=== PATIENT | female | born 1995 | race Asian ===

== ENCOUNTER → 2019-12-17 14:46 | Outpatient (CLI) | payer OTHER, SELFPAY ==
--- NOTE | 2019-12-17 14:50 | DI.US.S_ITS ---
PROCEDURE: US OB >= 14 WEEKS FETUS INDICATIONS: 20 week anatomy scan OUTSIDE/PRIOR DATING DATA: Last menstrual period (LMP): Not available. LMP-based estimated date of delivery (DAIANA): Not available. First dating scan (date and location): 10/28/[address] Romero's office. Estimated date of delivery (DAIANA) from first dating scan: 04/23/2020. TECHNIQUE: Real-time scanning was performed of the fetus, with image documentation and biometric measurements. Endovaginal scanning: Mild performed COMPARISON: [facility], , OB <= 14 WEEKS FETUS, 10/28/2019, 15:19. FINDINGS: General: A single living intrauterine gestation is present. Presentation: Breech. Placenta: Placental position is fundal , without previa. Amniotic fluid index: 15.9 cm, normal range is 5-24 cm; largest pocket 4.4 cm. heart rate: 173 beats per minute. Maternal cervical canal: 3.9 cm long. Normal lower limit is 2.5 cm. biometrics: Biparietal diameter: 21 weeks 4 days Head circumference: 21 weeks 1 day Abdominal circumference: 21 weeks 5 days Femur length: 21 weeks 1 day Estimated gestational age from initial scan: 21 weeks 5 days. Composite gestational age from present scan: 21 weeks 3 days Estimated weight and percentile: 421 g; 28% Measurement variability for biometric dating: +/- 7 days from 14 weeks to 15 weeks 6 days gestation, +/- 10 days from 16 weeks to 21 weeks 6 days gestation, +/- 2 weeks from 22 weeks to 27 weeks 6 days gestation, +/- 3 weeks for 28 weeks gestation or later. weight reference: 4500 g or EFW >90/95% is considered macrosomia or large for gestational age. EFW <10% is small for gestational age. EFW 5% or less is considered intra-uterine growth restriction. Anatomic survey: Neuro: Ventricles are non-dilated at less than 10 mm. Cisterna magna is normal at 3-11 mm. Cerebellum is normal in size and morphology. Nuchal skin fold: Normal at less than 6 mm between 14-21 weeks gestational age. Face: Nose and lips, facial profile are normal. Spine: No evidence for spina bifida. Heart: 4-chambered heart is present, with normal ventricular outflow tracts. Diaphragm: Diaphragm is intact. Stomach: Left-sided stomach is present. Kidneys: No hydronephrosis. Normal is less than 5 mm in 2nd trimester, less than 7 mm in 3rd trimester. Cord: 3-vessel cord has orthotopic insertion. Bladder: Normal in size. Extremities: All 4 extremities identified. IMPRESSION: 1. A single living intrauterine gestation with appropriate interval growth. 2. Normal anatomic survey. 3. heart rate is elevated at 173 BPM. Recommend clinical correlation and follow-up. Dictated by: Zohra Rivera M.D. on 12/17/2019 at 17:22 Approved by: Zohra Rivera M.D. on 12/17/2019 at 17:26
== END ==
PROVIDERS: PCP Specialist; Referring Provider Specialist; Visit Provider Specialist
DX: Z34.02 Encounter for supervision of normal first pregnancy, second trimester (principal); Z3A.21 21 weeks gestation of pregnancy
CPT/HCPCS: 76811

== ENCOUNTER → 2020-02-10 09:51 | Outpatient (CLI) | payer OTHER, SELFPAY ==
[2020-02-10 13:34] LABS: Hematocrit 30.8 % (36-46); Hemoglobin 10.2 g/dL (12.0-16.0)
[2020-02-10 13:49] LABS: GTT (PREG) 1 Hour PP 50gm Dose 66 mg/dL (76-139)
== END ==
PROVIDERS: PCP Specialist; Referring Provider Specialist; Visit Provider Specialist
DX: Z34.02 Encounter for supervision of normal first pregnancy, second trimester (principal)
CPT/HCPCS: 36415; 82950; 85014; 85018

== ENCOUNTER → 2020-03-30 17:28 | Outpatient (CLI) | payer OTHER, MEDICAID, SELFPAY ==
[2020-03-31 12:56] LABS: Strep Grp B PCR NEG for Grp B Strep
== END ==
PROVIDERS: PCP Specialist; Visit Provider Specialist
DX: Z34.03 Encounter for supervision of normal first pregnancy, third trimester (principal); Z3A.36 36 weeks gestation of pregnancy
CPT/HCPCS: 87653

== ENCOUNTER 2020-04-07 10:55 | Outpatient (CLI) | payer OTHER, MEDICAID, SELFPAY ==
--- NOTE | 2020-04-07 11:54 | PM.OBTRLD ---
Visit Information Visit Information Date of evaluation: 04/07/20 Primary OB Provider: Susi Romero Reason for Evaluation: Yes other Comments/Additional reasons for admission: Patient came in for external version for breech presentation. Vital Signs Vital Signs: Blood pressure 109/65, pulse 69 PFSH Medical History (Updated 04/07/20 @ 11:55 by Susi Romero MD) Anemia (~2018) Neck pain (~2016) Open ankle fracture Family History (Updated 10/27/19 @ 11:42 by Estela Lal RN) Mother No problems noted. Father No problems noted. Grandmother No problems noted. Grandfather No problems noted. Grandfather No problems noted. 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.) seatbelt use: always do you feel safe at home: Yes Smoking Status: Never smoker second hand exposure: No alcohol intake: former (very occasional socially, shares with , doesn't drink a whole drink.) substance use type: does not use Type(s) of exercise: walking and normal ROM and activity frequency: 5-6 times per week Evaluation Evaluation Baseline heart rate: 150 Variability: Moderate (11-25) monitor accelerations: Present monitor decelerations: Absent Contraction Frequency (minutes): 10 Uterine Contraction Intensity: Mild Category of Tracing: Reactive Status: Category l Diagnosis, Plan/Disposition Final Diagnosis (1) 38 weeks gestation of : Status: Acute Plan/Disposition Plan: Patient by ultrasound was found to be vertex today so no version necessary. Patient has appointment in 1 week for follow-up. Precautions reviewed. OB Disposition: home
== END 2020-04-07 12:00 | disposition home or self-care (01) ==
LOC: LABOR 11:27 → OB 04-08 09:22
PROVIDERS: PCP Specialist; Referring Provider Specialist; Visit Provider Specialist
DX: Z34.93 Encounter for supervision of normal pregnancy, unspecified, third trimester (principal); Z3A.38 38 weeks gestation of pregnancy
CPT/HCPCS: 59025; 59050; 76815; G0378; G0379

== ENCOUNTER 2020-04-21 16:15 | Outpatient (CLI) | payer OTHER, MEDICAID, SELFPAY ==
--- NOTE | 2020-04-21 17:04 | P.TNLD_ITS ---
Visit Information Visit Information Date of evaluation: 04/21/20 Primary OB Provider: Susi Romero Reason for Evaluation: Yes non-stress test non-stress test reason: other ( tachycardia in office) [facility] Medical History (Updated 04/21/20 @ 17:05 by Susi Romero MD) Anemia (~2017) Neck pain (~2015) Open ankle fracture Family History (Updated 10/27/19 @ 11:42 by Estela Lal RN) Mother No problems noted. Father No problems noted. Grandmother No problems noted. Grandfather No problems noted. Grandfather No problems noted. 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.) seatbelt use: always do you feel safe at home: Yes Smoking Status: Never smoker second hand exposure: No alcohol intake: former (very occasional socially, shares with , doesn't drink a whole drink.) substance use type: does not use Type(s) of exercise: walking and normal ROM and activity frequency: 5-6 times per week Evaluation Evaluation Baseline heart rate: 145 Variability: Moderate (11-25) monitor accelerations: Present monitor decelerations: Absent Contraction Frequency (minutes): 0 Category of Tracing: Reactive Status: Category l Diagnosis, Plan/Disposition Final Diagnosis (1) tachycardia: Status: Acute Plan/Disposition Plan: Reactive nonstress test with normal baseline reassuring OB Disposition: home
== END 2020-04-21 17:00 | disposition home or self-care (01) ==
LOC: LABOR 16:17 → OB 04-25 09:15
PROVIDERS: PCP Specialist; Referring Provider Specialist; Visit Provider Specialist
DX: O36.8330 Maternal care for abnormalities of the fetal heart rate or rhythm, third trimester, not applicable or unspecified (principal); Z3A.39 39 weeks gestation of pregnancy
CPT/HCPCS: 59025; G0378; G0379

== ENCOUNTER 2020-04-29 13:18 | Outpatient (CLI) | payer OTHER, MEDICAID, SELFPAY ==
--- NOTE | 2020-04-29 13:50 | P.TNLD_ITS ---
Visit Information Visit Information Date of evaluation: 04/29/20 Primary OB Provider: Susi Romero Reason for Evaluation: Yes non-stress test non-stress test reason: other (Postdates) [facility] Medical History (Updated 04/29/20 @ 13:51 by Susi Romero MD) Anemia (~2018) Neck pain (~2016) Open ankle fracture Family History (Updated 10/27/19 @ 11:42 by Estela Lal RN) Mother No problems noted. Father No problems noted. Grandmother No problems noted. Grandfather No problems noted. Grandfather No problems noted. 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.) seatbelt use: always do you feel safe at home: Yes Smoking Status: Never smoker second hand exposure: No alcohol intake: former (very occasional socially, shares with , doesn't drink a whole drink.) substance use type: does not use Type(s) of exercise: walking and normal ROM and activity frequency: 5-6 times per week Evaluation Evaluation Baseline heart rate: 150 Variability: Moderate (11-25) monitor accelerations: Present monitor decelerations: Absent Contraction Frequency (minutes): 5 Uterine Contraction Intensity: Mild Category of Tracing: Reactive Status: Category l Diagnosis, Plan/Disposition Final Diagnosis (1) Post term over 40 weeks: Status: Acute Plan/Disposition Plan: Reactive nonstress test. Patient is scheduled for induction in 5 days OB Disposition: home
== END 2020-04-29 13:57 | disposition home or self-care (01) ==
LOC: LABOR 14:31 → OB 05-02 07:33
PROVIDERS: PCP Specialist; Referring Provider Specialist; Visit Provider Specialist
DX: O48.0 Post-term pregnancy (principal); Z3A.40 40 weeks gestation of pregnancy
CPT/HCPCS: 59025; G0378; G0379

== ENCOUNTER 2020-04-29 22:33 | Outpatient (CLI) | payer OTHER, MEDICAID, SELFPAY | END 2020-04-29 23:05 | disposition home or self-care (01) | LOC: OB 05-02 07:33 | PROVIDERS: PCP Specialist; Referring Provider Specialist; Visit Provider Specialist | DX: O48.0 Post-term pregnancy (principal); Z3A.40 40 weeks gestation of pregnancy | CPT/HCPCS: 59025; G0378; G0379 ==

== ENCOUNTER 2020-04-30 12:09 | Inpatient (IN) | payer OTHER, MEDICAID, SELFPAY ==
[2020-04-30] MEDS: LACTATED RINGERS 1,000 ML 100 ML IV ×4 (12:30→21:46)
[2020-04-30 12:47] LABS: Add Manual Diff / Slide Review NO; Basophils Absolute Auto 0 /uL (0-100); Basophils Percent Auto 0.2 % (0-2); Eosinophils Absolute Auto 0 /uL (0-450); Hematocrit 37.3 % (36-46); Hemoglobin 12.3 g/dL (12.0-16.0); Lymphocytes Absolute Auto 1200 /uL (1100-4500); Lymphocytes Percent Auto 6.6 % (25-40); Mean Corpuscular Hemoglobin 25.2 PG (26-34); Mean Corpuscular Volume 76.4 fL (80-100); Monocytes Absolute Auto 400 /uL (0-900); Monocytes Percent Auto 2.3 % (3-14); Neutrophils Absolute Auto 17300 /uL (1500-7000); Neutrophils Percent Auto 90.9 % (50-75); Platelet Count 217 X10^3/uL (150-400); Red Blood Cell Count 4.89 X10^6/uL (4.0-5.2); Red Cell Distribution Width 13.5 % (11.6-14.8)
[2020-04-30 13:00] LABS: COVID19 -Nasal RAPID Negative (Negative)
--- NOTE | 2020-04-30 13:12 | P.HPOB_ITS ---
OB HPI Date/Time Date of admission: 04/30/20 Date Patient Seen: 04/30/20 Time Patient Seen: 13:12 History of Present Condition Chief complaint: : 1 Para: 0 Estimated Date of Delivery: 04/23/20 Estimated Gestational Age (weeks): 41 Narrative: Julia Vernon is a 24 year old female admitted in active labor History of Present care: good care, initiated at week # (14), number of visits (13) and pounds weight gain (26) Dating criteria: LMP confirmed by 2nd trimester US Ultrasounds: normal mid trimester US Obstetrical complications: none Medical complications: none Preadmission Labs Blood type: B (+) positive -: Antibody screen: negative, GBS status: negative, HBsAG: negative, HIV: negative and RPR/VDLR: negative -: Chlamydia screen: not detected and Gonorrhea screen: not detected -: Rubella: immune and Varicella: immune HCAB: negative PAP: Normal (Positive high-risk HPV) 1 hr GTT: 66 Evaluation Evaluation Baseline heart rate: 140 Variability: Moderate (11-25) monitor accelerations: Present monitor decelerations: Absent Contraction Frequency (minutes): 5 Uterine Contraction Intensity: Strong/Firm Category of Tracing: Reactive Status: Category l Cervical dilation (cm): 9 Cervical effacement (%): 100 station: 0 Laboratory results: Laboratory Tests 04/30/20 04/30/20 12:35 12:35 WBC 19.0 H RBC 4.89 Hgb 12.3 Hct 37.3 MCV 76.4 L MCH 25.2 L MCHC 33.0 RDW 13.5 Plt Count 217 Neut % (Auto) 90.9 H Lymph % (Auto) 6.6 L [place] % (Auto) 2.3 L Eos % (Auto) 0.0 L Baso % (Auto) 0.2 Neut # (Auto) 39840 H Lymph # (Auto) 1200 [place] # (Auto) 400 Eos # (Auto) 0 Baso # (Auto) 0 SARS-CoV-2 (PCR) Negative PFSH Medical History (Updated 04/29/20 @ 13:51 by Susi Romero MD) Anemia (~2017) Neck pain (~2015) Open ankle fracture Family History (Updated 10/27/19 @ 11:42 by Estela Lal RN) Mother No problems noted. Father No problems noted. Grandmother No problems noted. Grandfather No problems noted. Grandfather No problems noted. 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.) seatbelt use: always do you feel safe at home: Yes Smoking Status: Never smoker second hand exposure: No alcohol intake: former (very occasional socially, shares with , doesn't drink a whole drink.) substance use type: does not use Type(s) of exercise: walking and normal ROM and activity frequency: 5-6 times per week Meds Home Medications and Allergies Home Medications Medication Instructions Recorded Confirmed Type prenat.vits,zack,hci-zuzr-osctv 1 tab PO DAILY 10/27/19 04/21/20 History Allergies Allergy/AdvReac Type Severity Reaction Status Date / Time No Known Drug Allergies Allergy Verified 01/13/20 11:01 Review of Systems Review of Systems Narrative: Patient denies headaches, scotomata, epigastric pain. Good movement. Rupture membranes ROS: Yes All systems reviewed with the patient and are negative except as otherwise documented Exam Vital Signs (past 8 hours): Blood pressure 94/53, pulse of 83, temperature 36.3? Narrative Exam Narrative: HEENT exam within normal limits. Lungs are clear auscultation percussion. Heart is regular rate and rhythm no S3-S4 murmurs. Fetus is vertex. Extremities without edema and nontender. Objective Labs Result Diagrams: 04/30/20 12:35 Labs: Laboratory Results - last 24 hr 04/30/20 04/30/20 12:35 12:35 WBC 19.0 H RBC 4.89 Hgb 12.3 Hct 37.3 MCV 76.4 L MCH 25.2 L MCHC 33.0 RDW 13.5 Plt Count 217 Neut % (Auto) 90.9 H Lymph % (Auto) 6.6 L [place] % (Auto) 2.3 L Eos % (Auto) 0.0 L Baso % (Auto) 0.2 Neut # (Auto) 46644 H Lymph # (Auto) 1200 [place] # (Auto) 400 Eos # (Auto) 0 Baso # (Auto) 0 SARS-CoV-2 (PCR) Negative Assessment and Plan Assessment and Plan Assessment and Plan narrative: 41 week gestation active labor. Patient is receiving epidural catheter for pain control. Anticipate vaginal delivery.
[2020-04-30] MEDS: FENT 2MCG/ML BUPIV 0.125% EPI 200 MCG/100 ML PLAST..BAG 10 MCG EPIDURAL (13:16)
[2020-04-30] MEDS: OXYTOCIN PREMIX 30 UNIT/500 ML PLAST..BAG IV (14:52)
--- NOTE | 2020-04-30 18:54 | PM.PREOP ---
Pre-operative Note COVID-19 COVID-19 status: Negative Result date/Date tested (Pos, Neg/Pending): 04/30/20 Interval Note History & Physical reviewed/Exam performed by Physician: Yes Changes to H&P: Yes H&P completed within 30 days and has changed as indicated here:: Failure to deliver, second-stage arrest
--- NOTE | 2020-04-30 18:55 | PM.OBPNLAB ---
Date/Time Date Patient Seen: 04/30/20 Time Patient Seen: 18:55 Pain Control Pain control: epidural Pelvic Exam Dilation (cm): 10 Effacement (%): 100 station: 0 Amniotic membrane status: Ruptured Contractions Contractions on admission: regular Monitor mode: External Pitocin rate (mU/min): 6 Contraction frequency (min): 4 Contraction duration (min): 1 Contraction pattern: Regular Contraction intensity: Strong/Firm Status status: Category ll Heart Rate Baseline: 140 Monitor Accelerations: Present Monitor Decelerations: Variable Monitor Variability: Moderate Assessment and Plan Plan: Comments: Failed attempt at vacuum assisted vaginal delivery
[2020-04-30] MEDS: CEFAZOLIN 2 GM/100 ML FROZ.PIGGY IV (19:25)
--- NOTE | 2020-04-30 19:45 | SUR.OPER ---
Supine on Padded OR bed, head on pillow, safety belt at thigh, arms secured on padded arm boards at <90 degrees abduction. Bump under right buttock. Legs uncrossed with pillow under knees, gel pad to heels, tape over blanket to lower legs.
--- NOTE | 2020-04-30 19:56 | SUR.OPER ---
Viable baby girl born at 1937, placenta delivered. Cord blood tubes X2 and placenta given to L&D RN.
[2020-04-30 20:18] VITALS: BP 124/68; PULSE 89; RESP 16; TEMP 37.4; O2SAT 99
[2020-04-30 20:22] VITALS: BP 122/64; PULSE 83; RESP 19; O2SAT 97
--- NOTE | 2020-04-30 20:23 | P.OP_ITS ---
Operative Date/Time/Diagnoses Date of procedure: 04/30/20 Time of procedure: 20:23 Pre-op diagnosis: Second-stage arrest with failed vacuum assisted vaginal delivery Post-op diagnosis: same Procedure & Clinicians Procedure: Primary low-transverse section Same procedure as scheduled: Yes Indications: Second-stage arrest with failed attempt at vacuum assisted vaginal delivery Surgeon: Susi Romero Entry Level Business Analyst: Gracy Pelletier Click Yes if Unassisted: No Anesthesia Type: Epidural Operative Notes Findings: Normal tubes, ovaries, uterus. Viable female infant with Apgars of 8 and 9, 3500 g Closure Type: primary Specimen(s): none sent Applied: catheter (Ramos) Estimated Blood Loss (mL): 400 Blood products transfused: none Procedure in detail: The patient was brought to the operating room where she underwent bolus of her epidural for anesthesia. She was placed in a supine position with a left lateral tilt. A Ramos catheter was placed. Pulsatile stockings were placed and functional throughout the case. 2 g of Ancef were given IV prior to the incision. Warming was in place. The patient was prepped and draped in usual sterile fashion. A low transverse incision was made with a scalpel and the incision was carried down to the fascial layer which was incised transversely with scissors. The office manager executive assistant did her side of the incision. The midline attachments are superiorly and inferiorly. Some bleeding was controlled Bovie. The rectus muscles were in the midline and the peritoneal incision was made with no damage to internal structures. The peritoneum was incised and superiorly and inferiorly. The incision was stretched with the surgeon and office manager executive assistant placing traction. Bladder blade was placed and a bladder flap was developed and the bladder held away from the lower uterine segment. An incision was made in the uterus with the scalpel and the incision was extended with stretching. The head was elevated out of the abdomen and with fundal pressure by the office manager executive assistant the baby was delivered. The was bulb suctioned for clear fluid and handed off to the warmer. Cord blood was collected. The placenta delivered spontaneously with traction. The uterus was cleaned with clean laps. The uterine incision was closed in 2 layers of 0 chromic suture the first a running locking layer the second an imbricating layer. The office manager executive assistant was helping to expose the incision. The bladder peritoneum was repaired with 2-0 Vicryl suture. The gutters were cleaned of any remaining fluids and ovaries and tubes were observed to be normal. Adequate hemostasis was noted. The perineum was closed with 2-0 Vicryl suture. The fascia layer was closed with 0 Vicryl suture with 2 stitches. The office manager executive assistant repairing half the incision with helping to retract and expose the incision for the other half. The incision was irrigated and adequate hemostasis noted. The incision was closed with interrupted 3-0 Vicryl sutures and then a subcuticular stitch of 4-0 Vicryl suture. Steri-Strips were placed. The uterus was massaged to remove any clots. The patient went to recovery room in good condition. Counts of instruments and sponges were correct. Dr. Pelletier was present throughout the case to assist with retraction, fundal pressure to deliver the , and suturing half the fascia. Complications: none Post-operative Condition: stable Disposition: other ( Center) Plan for aftercare: Routine post section
[2020-04-30 20:27] VITALS: BP 97/64; PULSE 78; RESP 20; O2SAT 98
[2020-04-30 20:32] VITALS: BP 105/63; PULSE 75; RESP 22; O2SAT 98
[2020-04-30 20:41] VITALS: BP 118/61; PULSE 71; RESP 18; TEMP 37.6; O2SAT 97
--- NOTE | 2020-04-30 21:06 | SUR.PHASEI ---
Stable post op, to BC.
[2020-04-30 22:04] VITALS: BP 114/66
[2020-04-30] MEDS: ACETAMINOPHEN 325 MG TABLET 650 MG PO (22:26)
[2020-04-30] MEDS: OXYCODONE IR 5 MG TABLET PO (22:27)
[2020-05-01] MEDS: KETOROLAC 30 MG/ML VIAL IV ×3 (02:14→14:39)
[2020-05-01] MEDS: LACTATED RINGERS 1,000 ML 100 ML IV (05:19)
[2020-05-01] MEDS: ACETAMINOPHEN 325 MG TABLET 650 MG PO ×3 (05:20→22:40)
[2020-05-01 06:30] LABS: Add Manual Diff / Slide Review NO; Basophils Absolute Auto 100 /uL (0-100); Basophils Percent Auto 0.3 % (0-2); Eosinophils Absolute Auto 0 /uL (0-450); Eosinophils Percent Auto 0.1 % (2-4); Hematocrit 30.7 % (36-46); Hemoglobin 10.3 g/dL (12.0-16.0); Lymphocytes Absolute Auto 1300 /uL (1100-4500); Lymphocytes Percent Auto 6.7 % (25-40); Mean Corpuscular HGB Conc 33.5 % (30-36); Mean Corpuscular Hemoglobin 25.6 PG (26-34); Mean Corpuscular Volume 76.2 fL (80-100); Monocytes Absolute Auto 900 /uL (0-900); Monocytes Percent Auto 4.8 % (3-14); Neutrophils Absolute Auto 16400 /uL (1500-7000); Neutrophils Percent Auto 88.1 % (50-75); Platelet Count 160 X10^3/uL (150-400); Red Blood Cell Count 4.02 X10^6/uL (4.0-5.2); Red Cell Distribution Width 13.4 % (11.6-14.8); White Blood Cell Count 18.6 X10^3/uL (4.5-11.0)
[2020-05-01] MEDS: DOCUSATE 250 MG CAPSULE PO (08:45)
[2020-05-01] MEDS: LANOLIN OINT 7 GM 1 APPLIC TOP (08:45)
[2020-05-01 08:46] VITALS: TEMP 37.2
--- NOTE | 2020-05-01 09:15 | P.PNOB_ITS ---
Subjective - OB Subjective Patient comments: no complaints Enterprise baby status: doing well Enterprise feeding status: exclusively breast feeding Date Patient Seen: 05/01/20 Time Patient Seen: 09:16 Interval history: Patient is post operative day 1. Primary section for 3rd stage arrest. Patient states she is doing well. Exam Vital Signs (past 8 hours): - 05/01/20 08:46 Temperature 98.9 F Oxygen Delivery Method Room Air Narrative Exam Narrative: Patient did have temperature up to 100.7 over night but resolved now 98.9. Blood pressure 113/70, pulse of 80 Abdomen is soft, nontender. Uterus is firm, at U, minimally tender. Dressing is clean, dry, intact. Mild lochia. Extremities without edema and nontender Objective Labs Result Diagrams: 05/01/20 06:19 Labs: Laboratory Results - last 24 hr 04/30/20 04/30/20 04/30/20 12:35 12:35 12:35 WBC 19.0 H RBC 4.89 Hgb 12.3 Hct 37.3 MCV 76.4 L MCH 25.2 L MCHC 33.0 RDW 13.5 Plt Count 217 Neut % (Auto) 90.9 H Lymph % (Auto) 6.6 L [place] % (Auto) 2.3 L Eos % (Auto) 0.0 L Baso % (Auto) 0.2 Neut # (Auto) 98181 H Lymph # (Auto) 1200 [place] # (Auto) 400 Eos # (Auto) 0 Baso # (Auto) 0 SARS-CoV-2 (PCR) Negative Blood Type B Positive Antibody Screen Negative 05/01/20 06:19 WBC 18.6 H RBC 4.02 Hgb 10.3 L Hct 30.7 L MCV 76.2 L MCH 25.6 L MCHC 33.5 RDW 13.4 Plt Count 160 Neut % (Auto) 88.1 H Lymph % (Auto) 6.7 L [place] % (Auto) 4.8 Eos % (Auto) 0.1 L Baso % (Auto) 0.3 Neut # (Auto) 03698 H Lymph # (Auto) 1300 [place] # (Auto) 900 Eos # (Auto) 0 Baso # (Auto) 100 SARS-CoV-2 (PCR) Blood Type Antibody Screen Assessment & Plan Assessment and Plan (1) Delivery by section: Status: Acute Plan day: 1 plan OB: routine postop care Time Spent With Patient Time: Total time spent is greater than 50% in coordination of care (as aiyana ricci) at patient's floor/unit and/or counseling patient: Time with patient: less than 15 minutes
[2020-05-01 09:27] VITALS: TEMP 37.2
[2020-05-01] MEDS: OXYCODONE IR 5 MG TABLET PO ×2 (09:27→22:40)
[2020-05-01] MEDS: IBUPROFEN 600 MG TABLET PO (22:41)
[2020-05-02] MEDS: OXYCODONE IR 5 MG TABLET PO ×2 (04:48→11:02)
[2020-05-02] MEDS: ACETAMINOPHEN 325 MG TABLET 650 MG PO ×2 (04:48→11:03)
[2020-05-02] MEDS: IBUPROFEN 600 MG TABLET PO ×2 (04:48→11:03)
--- NOTE | 2020-05-02 09:43 | PM.OBDS.1 ---
Discharge Providers Provider Date of admission: 04/30/20 12:09 Discharge Date: 05/02/20 Primary care physician: Shannan Huggins MD Consults: 04/30/20 12:37 Consult to Anesthesiology Urgent Comment: Consulting Provider: Anesthesiologist Reason for consultation: Epidural Has provider been notified: No 04/30/20 22:01 Consult to Boil Off Machine Operator Cloth Routine Comment: Discharge provider: Susi Romero MD Summary Hospital Course Date Patient Seen: 05/02/20 Time Patient Seen: 09:44 Diagnoses: 41 week gestation with second-stage arrest with primary section Hospital Course: Patient arrived on Labor and delivery in active labor. She had a 2nd stage arrest and a failed attempt at vacuum delivery assisted vaginal delivery. She had a primary low-transverse section on 04/30/2020. Patient is doing well. She is breast-feeding without difficulty. She is urinating and ambulating well. She is passing gas. Peripartum Data Infant Delivery Method: Section (Second-stage arrest) Procedures: Epidural catheter, Pitocin augmentation of labor, failed vacuum assisted vaginal delivery with primary low-transverse section complications: none 1: Gender: Female Disposition of : home Discharge Diagnosis (1) Delivery by section: Status: Acute Status at Discharge Cognitive/behavioral status at discharge: oriented Functional status at discharge: independent ambulation Overall status at discharge: patient is progressing back to baseline Time Spent with Patient Time attestation: Total time spent providing and/or coordinating discharge services: Time spent: Less than 30 minutes Objective Labs Result Diagrams: 05/01/20 06:19 Exam Vital Signs (past 8 hours): Blood pressure 111/49, pulse 65, temperature 97.7? Oxygen Delivery Method Room Air Narrative Exam Narrative: Abdomen is soft, nontender. Uterus is firm, at U, nontender. Dressing is clean, dry, intact. Mild lochia. Extremities without edema and nontender. Patient's blood type is B positive. She is rubella immune. She needs the Tdap prior to discharge. Discharge Plan Discharge Plan Patient Disposition: Home Discharge orders & Medications Prescriptions: New ibuprofen 600 mg Tablet 600 mg PO Q6HR PRN (Reason: Fever/Mild Pain (1-3)) Qty: 30 RF: 0 oxycodone 5 mg Tablet 5 mg PO Q4HR PRN (Reason: Pain, Moderate (4-6)) Qty: 20 RF: 0 Continued prenat.vits,zack,zan-dotg-axwem Tablet 1 tab PO DAILY RF: 0 Follow up/Referrals: Susi Romero MD [Physician] - 3-5 Days (May 04- Sat at 4:30pm with Dr Romero in [place] for dressing removal) Shannan Huggins MD [Primary Care Provider] - Diet/Activity/Treatments Diet: Regular Activity: Nothing in vagina or lifting over 20 lb for 6 weeks Skin/Wound/Dressing Care Report to your healthcare provider any signs of infection, such as:: chills, fever, increased pain and unusual redness Dressing: Leave dressing on postop appointment Discharge Data Primary Care Provider: Shannan Huggins
[2020-05-02 10:12] VITALS: BP 111/49; PULSE 65; RESP 17; TEMP 36.5
[2020-05-02] MEDS: DOCUSATE 250 MG CAPSULE PO (11:02)
== END 2020-05-02 13:15 | disposition home or self-care (01) | DRG 540 ==
PROVIDERS: Admitting Provider Specialist; PCP Specialist; Referring Provider Specialist; Visit Provider Specialist
PROC: 10D00Z1 Extraction of Products of Conception, Low, Open Approach (ICD-10-PCS; CPT 59514; principal; 2020-04-30 19:15)
DX: O48.0 Post-term pregnancy (principal); O62.1 Secondary uterine inertia; O66.5 Attempted application of vacuum extractor and forceps; Z3A.41 41 weeks gestation of pregnancy; Z37.0 Single live birth; Z20.822 Contact with and (suspected) exposure to COVID-19
CPT/HCPCS: 01967; 01968; 36415; 59025; 59050; 59514; 85025; 86850; 86900; 86901; 87635; C9803; G0379; J0690; J1885; J2590